=== PATIENT | male | born 1965 | race Caucasian/White ===

== ENCOUNTER 2022-04-18 09:59 | Emergency (ER) | payer OTHER ==
[2022-04-18] MEDS ORDERED: LIDOCAINE 1% INJ 10MG/ML (20 ML MDV) SQ STA (11:02)
[2022-04-18] MEDS ORDERED: DIPH,PERTUS(ACELL)TETVAC-LF 0.5 ML VIAL IM ONE (11:04)
--- NOTE | 2022-04-18 11:18 | ED ---
Wound/Laceration HPI - General Chief Complaint: Wound/Laceration Stated Complaint: Arm laceration Time Seen by Provider: 04/18/22 11:01 Source: patient, RN notes reviewed Mode of arrival: ambulatory Limitations: no limitations - History of Present Illness Initial Comments: Patient 57 year old male presenting to the ER with complaints of laceration to his right forearm that occurred while he was at work. He was cutting a zip tie with a mancini knife when the zip tie gave way and he cut his forearm by accident. He denies any range of motion impairment though he does report that the motion is painful. He denies any numbness or tingling not elicited by a tight bandage placed by EMS to stop bleeding. He states that he keeps the night clean however denied is utilized regularly for an array of things from preparing food to he is unsure of his tetanus status. He has a past medical history significant for hyperlipidemia. - Related Data Previous Rx's Medication Instructions Recorded Sulfamethox-Tmp 800-160Mg [Bactrim 1 tab PO Q12HR 3 Days #6 tab 04/18/22 DS 800-160 mg] Allergies Allergy/AdvReac Type Severity Reaction Status Date / Time No Known Allergies Allergy Verified 04/18/22 10:11 Review of Systems ROS Statement: Those systems with pertinent positive or pertinent negative responses have been documented in the HPI. ROS Other: All systems not noted in ROS Statement are negative. Past Medical History Past Medical History: Hyperlipidemia Past Surgical History: Orthopedic Surgery Additional Past Surgical History / Comment(s): knee sx Past Psychological History: No Psychological Hx Reported Smoking Status: Current every day smoker Past Alcohol Use History: Occasional Past Drug Use History: None Reported General Exam Limitations: no limitations General appearance: alert, in no apparent distress Head exam: Present: atraumatic, normocephalic, normal inspection Eye exam: Present: normal appearance, PERRL, EOMI. Absent: scleral icterus, conjunctival injection, periorbital swelling ENT exam: Present: normal exam, mucous membranes moist Neck exam: Present: normal inspection Respiratory exam: Absent: respiratory distress, accessory muscle use Right Forearm Wrist exam: Present: full ROM, tenderness, laceration (Palmar aspect forearm). Absent: swelling, deformity, crepitus, dislocation, tenderness over anatomical snuff box, pain with axial thumb loading Vascular: Absent: vascular compromise Back exam: Present: normal inspection Neurological exam: Present: alert, oriented X3, CN II-XII intact Psychiatric exam: Present: normal affect, normal mood Skin exam: Present: other (Laceration as indicated above) Course Vital Signs 04/18/22 04/18/22 10:07 13:40 Temperature 98.0 F 98.3 F Pulse Rate 87 78 Respiratory 22 18 Rate Blood Pressure 161/105 149/93 O2 Sat by Pulse 96 95 Oximetry Procedures - Laceration Laceration #1 Consent Obtained: verbal consent Indication: laceration Site: upper extremity (Right forearm) Size (cm): 3 Depth: simple, single layer Anesthetic Used: lidocaine 1% Anesthesia Technique: local infiltration Pre-repair: wound explored, irrigated extensively Type of Sutures: nylon Size of Sutures: 4-0 Number of Sutures: 5 Technique: simple, interrupted Patient Tolerated Procedure: well, no complications Medical Decision Making - Medical Decision Making 57-year-old male with laceration to right forearm. He reports that he "felt the knife hit the bone." Due to patient concern will check x-ray of the right forearm. Will plan for suture closure and tetanus update after x-ray. His employer is unsure of need of a drug screen at this time will obtain per their protocols. X-ray reveals no foreign body or bone check. Laceration closed with intermittent sutures with out complication. Due to location that injury occurred(any [place] field) along with lack of sterility of knife will give empiric course of antibiotics. Advised may return to work but no heavy lifting with his right arm and to keep wound covered while at work. Discussed wound care and suture removal. Advised may utilize Tylenol or ibuprofen as needed for pain. Case discussed with Dr. Cunha - Lab Data Lab Results 04/18/22 Range/Units 11:03 Urine Opiates Screen Not Detected (NotDetected) Ur Oxycodone Screen Not Detected (NotDetected) Urine Methadone Screen Not Detected (NotDetected) Ur Propoxyphene Screen Not Detected (NotDetected) Ur Barbiturates Screen Not Detected (NotDetected) U Tricyclic Antidepress Not Detected (NotDetected) Ur Phencyclidine Scrn Not Detected (NotDetected) Ur Amphetamines Screen Not Detected (NotDetected) U Methamphetamines Scrn Not Detected (NotDetected) U Benzodiazepines Scrn Not Detected (NotDetected) Urine Cocaine Screen Not Detected (NotDetected) U Marijuana (THC) Screen Not Detected (NotDetected) - Radiology Data Radiology results: image reviewed Interpreted by me: X-ray left forearm shows no acute osseous process, foreign body or bone chip. Radiology report pending Disposition Clinical Impression: Laceration Disposition: HOME SELF-CARE Condition: Stable Instructions (If sedation given, give patient instructions): Care For Your Stitches (ED), Laceration (ED) Additional Instructions: Please complete antibiotic course as prescribed. He'll her tetanus vaccine has been updated and is currently the next 10 years. Please keep wound clean and dry. Please monitor for signs and symptoms of infection. Please follow-up with your primary care provider for suture removal in 7-10 days. Please return to the Emergency Department if symptoms worsen or any other concerns. Prescriptions: Sulfamethox-Tmp 800-160Mg [Bactrim DS 800-160 mg] 1 tab PO Q12HR 3 Days #6 tab Is patient prescribed a controlled substance at d/c from ED?: No Referrals: Beth Perez MD [Primary Care Provider] - 1-2 days Time of Disposition: 13:03
[2022-04-18 12:49] LABS: Amphetamine Screen,Urine Not Detected (NotDetected); Barbiturate Screen,Urine Not Detected (NotDetected); Benzodiazepines Screen,Urine Not Detected (NotDetected); Cocaine Screen,Urine Not Detected (NotDetected); Methadone Screen, Urine Not Detected (NotDetected); Opiate Screen,Urine Not Detected (NotDetected); Oxycodone Screen, Urine Not Detected (NotDetected); Phencyclidine Screen,Urine Not Detected (NotDetected); Tricyclic Antidepressant,Urine Not Detected (NotDetected); Urn Cannabinoid Scrn Not Detected (NotDetected)
[2022-04-18 13:42] VITALS: BP 149/93; PULSE 78; RESP 18; TEMP 98.3
--- NOTE | 2022-04-19 20:58 | XR ---
EXAMINATION TYPE: XR forearm RT DATE OF EXAM: 04/18/2022 COMPARISON: None HISTORY: Laceration TECHNIQUE: 2 view right forearm FINDINGS: No acute fracture or dislocation is evident. Joint spaces are preserved. Small olecranon sp ur is present. Soft tissues appear within normal limits. No radiopaque foreign bodies are identified. Follow up exams can be performed 7-10 days of acute trauma for continued pain. IMPRESSION: 1. No acute osseous abnormality. 2. No radiopaque foreign bodies.
== END 2022-04-18 13:42 | disposition home or self-care (01) ==
LOC: EC 09:59
DX: S51.811A Laceration without foreign body of right forearm, initial encounter (principal); E78.5 Hyperlipidemia, unspecified; F17.200 Nicotine dependence, unspecified, uncomplicated; Z23 Encounter for immunization; W26.0XXA Contact with knife, initial encounter; Y99.0 Civilian activity done for income or pay
CPT/HCPCS: 80306; 73090; 90715; 99283; 12002; 90471; J2001

== ENCOUNTER → 2024-01-02 | Outpatient (CLI) | payer OTHER ==
--- NOTE | 2024-01-02 11:00 | XR ---
EXAMINATION TYPE: XR lumbar spine 2 or 3V DATE OF EXAM: 01/02/2024 COMPARISON: None HISTORY: Twisted back. Back pain TECHNIQUE: 3 view lumbar spine FINDINGS: There are 5 lumbar-type vertebral bodies. Pedicles are intact. Disc heights are preserved. Vertebral body heights are preserved. Alignment is preserved. IMPRESSION: 1. No acute osseous abnormality lumbar spine
--- NOTE | 2024-01-02 11:01 | XR ---
EXAMINATION TYPE: XR thoracic spine complete DATE OF EXAM: 01/02/2024 COMPARISON: None HISTORY: Back pain TECHNIQUE: 3 view thoracic spine FINDINGS: There are 12 thoracic type vertebral bodies. Pedicles are intact. Disc heights are preserve d. Vertebral body heights are preserved. IMPRESSION: 1. No acute osseous abnormality thoracic spine
== END | disposition home or self-care (01) ==
LOC: RADXRMAIN 09:25
PROVIDERS: ATTEND Emergency Medicine
DX: S23.3XXA Sprain of ligaments of thoracic spine, initial encounter (principal); S33.5XXA Sprain of ligaments of lumbar spine, initial encounter
CPT/HCPCS: 72072; 72100